=== PATIENT | male | born 1990 | race Caucasian/White ===

== ENCOUNTER 2017-01-02 19:28 | Emergency (ER) | payer SELFPAY ==
[~2017-01-02] VITALS: Ht 180.3 cm; Wt 82.0 kg
[2017-01-02 19:35] VITALS: BP 132/86; PULSE 116; RESP 14; TEMP 98.2; O2SAT 95
[2017-01-02 19:38] VITALS: BP 132/86; PULSE 110; RESP 14; TEMP 98.1; O2SAT 96
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
[2017-01-02 21:00] VITALS: BP 134/82; PULSE 96; RESP 12; O2SAT 99
[2017-01-02] MEDS ORDERED: IOHEXOL 350 MG/ML 10 ML VIAL (for RAD DIAG) IV ONE (22:04)
[2017-01-02 22:13] VITALS: BP 128/84; PULSE 99; RESP 12; O2SAT 98
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
[2017-01-02] MEDS ORDERED: ZITHTAB PO (22:50)
[2017-01-02 23:09] VITALS: BP 130/82; PULSE 98; RESP 12; O2SAT 99
== END 2017-01-02 23:54 | disposition home or self-care (01) ==
LOC: NEPC 19:28
DX: J18.9 Pneumonia, unspecified organism (principal); N20.0 Calculus of kidney; M54.5 Low back pain; M54.2 Cervicalgia; V47.5XXA Car driver injured in collision with fixed or stationary object in traffic accident, initial encounter; Y93.89 Activity, other specified; Y92.89 Other specified places as the place of occurrence of the external cause; Y99.9 Unspecified external cause status
CPT/HCPCS: 70450; 71260; 72125; 74177; 99284; Q9967